=== PATIENT | female | born 1960 | race Two or more races ===

== ENCOUNTER 2017-07-16 18:34 | Emergency (ER) | payer OTHER ==
--- NOTE | 2017-07-16 18:41 | PDOC ---
Rapid Medical Evaluation Time Seen by Provider: 07/16/17 18:37 Medical Evaluation: Allergies Allergy/AdvReac Type Severity Reaction Status Date / Time Penicillins Allergy Verified 04/21/16 16:10 sulfamethoxazole Allergy Verified 04/21/16 16:10 [From Bactrim] trimethoprim [From Bactrim] Allergy Verified 04/21/16 16:10 07/16/17 18:37 I have performed a brief in-person evaluation of this patient. The patient presents with a chief complaint of: Pt from [facility] , sent in for L leg swelling, r/o DVT. No witnessed trauma. Pt ambulatory Pertinent physical exam findings:L leg swollen compared to right side, no erythema/warmth or tenderness I have ordered the following: cbc/chem/US The patient will proceed to the ED for further evaluation. 07/16/17 18:42
[2017-07-16 18:43] VITALS: BP 130/32; PULSE 90; TEMP 98.2; BMI 35.0
[2017-07-16 18:56] LABS: BASOPHIL 0.6 % (0-2.0); EOSINOPHIL 1.7 % (0-4.5); MCH 29.3 pg (25.7-33.7); MCHC 32.6 g/dl (32.0-36.0); MEAN CELL VOLUME 89.9 fl (80-96); MEAN PLT VOLUME 9.2 fl (7.5-11.1); NEUTROPHILS 57.2 % (42.8-82.8); PLATELET COUNT 222 K/MM3 (134-434); RDW 14.8 % (11.6-15.6); WHITE BLOOD COUNT 8.3 K/mm3 (4.0-10.0)
[2017-07-16 19:24] LABS: ALBUMIN 3.2 g/dl (3.4-5.0); ANION GAP 4 (8-16); BILIRUBIN,TOTAL 0.2 mg/dL (0.2-1.0); CALCIUM 8.7 mg/dL (8.5-10.1); CO2 29 mmol/L (21-32); CREATININE 0.6 mg/dL (0.55-1.02); GLUCOSE,RANDOM 102 mg/dL (74-106); SGOT/AST 13 U/L (15-37); SGPT/ALT 23 U/L (12-78); TOT PROT 6.9 g/dl (6.4-8.2)
[2017-07-16 19:25] LABS: ALK PHOS 117 U/L (45-117)
--- NOTE | 2017-07-16 20:10 | PDOC ---
History of Present Illness - General History Source: [facility] <Santiago Hollis - Last Filed: 07/16/17 20:16> - General History Source: Patient Exam Limitations: No Limitations - History of Present Illness Initial Comments: 07/16/17 20:46 Patient is a 57 year old female with a significant past medical history of Gallbladder disease, Hypothyroidism, Developmental Disability who presents to the ED with complaints of Lower left extremity swelling. Patient reports being sent from urgent care after coming in for complaint of left lower extremity swelling. Patient arrived into the ED with bandage on left lower extremity and reports she had it on while in urgent care facility as well. Bandage was removed from left lower extremity after arriving at ED. Patient states she currently does not having any pain from left lower extremity. Denies fever, chills. Denies nausea, coughing, vomiting. Lightheadedness, dizziness. Denies headache. Denies any other symptoms. Allergies: Penicillin, Sulfamethoxazole, Trimethoprim. [facility] history: [facility] No smoking. No alcohol. No illicit drugs. Surgical history:Cholecystectomy PMD: None <Odilon Stoddard - Last Filed: 07/16/17 20:47> - General Chief Complaint: Pain Stated Complaint: SKILLED NURSING LEG SWELLING Time Seen by Provider: 07/16/17 18:37 Past History - Past Medical History Anemia: No Asthma: No Cancer: No Cardiac Disorders: No CVA: No COPD: No CHF: No DVT: No Dementia: No Diabetes: No GI Disorders: Yes (GALLBLADDER DISEASE) Disorders: No HTN: Yes Hypercholesterolemia: No Liver Disease: No Seizures: No Thyroid Disease: Yes (hypothyroidism) Other medical history: MR,BEHAVIORAL D/O, - Surgical History Abdominal Surgery: No Appendectomy: No Cardiac Surgery: No Cholecystectomy: Yes Lung Surgery: No Neurologic Surgery: No Orthopedic Surgery: No - Suicide/Smoking/Psychosocial Hx Smoking Status: No Smoking History: Never smoked Have you smoked in the past 12 months: No Number of Cigarettes Smoked Daily: 0 Information on smoking cessation initiated: No Hx Alcohol Use: No Drug/Substance Use Hx: No Substance Use Type: None Hx Substance Use Treatment: No <Santiago Hollis - Last Filed: 07/16/17 20:16> <Odilon Stoddard - Last Filed: 07/16/17 20:47> - Past Medical History Allergies/Adverse Reactions: Allergies Allergy/AdvReac Type Severity Reaction Status Date / Time Penicillins Allergy Verified 07/16/17 18:40 sulfamethoxazole Allergy Verified 07/16/17 18:40 [From Bactrim] trimethoprim [From Bactrim] Allergy Verified 07/16/17 18:40 Home Medications: Ambulatory Orders Clonazepam 1 mg PO BID 11/11/13 Lisinopril [Prinivil] 10 mg PO DAILY 10/08/14 Multivitamins [Multivit ([facility] Formul[facility])] 1 tab PO DAILY 10/08/14 Ranitidine HCl [Zantac] 150 mg PO BID 10/08/14 Benztropine Mesylate [Cogentin] 0.5 mg PO DAILY 12/23/14 Carbamazepine [Tegretol -] 200 mg PO BID 12/23/14 Centrum Tablet 1 tab PO DAILY 12/23/14 Cholecalciferol (Vitamin D3) [Vitamin D-3] 2,000 units PO DAILY 12/23/14 Clonazepam [Klonopin -] 0.5 mg PO DAILY 12/23/14 Lurasidone HCl [Latuda] 60 mg PO DAILY 12/23/14 Sertraline HCl [Zoloft] 100 mg PO DAILY 12/23/14 Oxycodone HCl/Acetaminophen [Percocet 5-325 mg Tablet -] 1 tab PO Q6H PRN #20 tablet 12/24/14 Review of Systems - Review of Systems Able to Perform ROS?: Yes Comments:: 07/16/17 20:47 Adult Basic ROS CONSTITUTIONAL: Absent: fever, no chills, no fatigue EYES: Absent: visual changes ENT: Absent: ear pain, no sore throat CARDIOVASCULAR: Absent: chest pain, no palpitations RESPIRATORY: Absent: cough, no SOB GI: Absent: abdominal pain, no nausea, no vomiting, no constipation, no diarrhea GENITOURINARY: Absent: dysuria, no frequency, no hematuria MUSCULOSKELETAL: +left lower extremity swelling. Absent: back pain, no arthralgia, no myalgia SKIN: Absent: rash All Other Systems: Reviewed and Negative <Odilon Stoddard - Last Filed: 07/16/17 20:47> *Physical Exam - Vital Signs Last Vital Signs Temp Pulse Resp BP Pulse Ox 98.2 F 90 18 130/32 100 07/16/17 18:41 07/16/17 18:41 07/16/17 18:41 07/16/17 18:41 07/16/17 18:41 <Santiago Hollis - Last Filed: 07/16/17 20:16> - Vital Signs Last Vital Signs Temp Pulse Resp BP Pulse Ox 98.2 F 90 18 130/32 100 07/16/17 18:41 07/16/17 18:41 07/16/17 18:41 07/16/17 18:41 07/16/17 18:41 - Physical Exam Comments: 07/16/17 20:47 GENERAL: Well-appearing, well-nourished. No apparent distress. HEENT: Normocephalic, atraumatic. PERRL, EOM intact. CARDIOVASCULAR: Normal S1, S2. Regular rate and rhythm. PULMONARY: Clear to auscultation bilaterally. ABDOMEN: +Morbidly obese. Soft, non-distended, non-tender. EXTREMITIES: +Slight edema of left lower extremity, non pitting. No erythema. No open wounds to either lower extremities. Normal ROM in all four extremities. No gross deformities. SKIN: Warm, dry. No rash NEUROLOGICAL: No focal neurological deficits. <Odilon Stoddard - Last Filed: 07/16/17 20:47> ED Treatment Course - LABORATORY CBC & Chemistry Diagram: 07/16/17 18:50 07/16/17 18:50 - ADDITIONAL ORDERS Additional order review: Laboratory Results 07/16/17 18:50 Sodium 142 Potassium 4.3 Chloride 109 H Carbon Dioxide 29 Anion Gap 4 L BUN 26 H D Creatinine 0.6 Creat Clearance w eGFR > 60 Random Glucose 102 Calcium 8.7 Total Bilirubin 0.2 D AST 13 L ALT 23 Alkaline Phosphatase 117 Total Protein 6.9 Albumin 3.2 L 07/16/17 18:50 RBC 4.76 MCV 89.9 MCHC 32.6 RDW 14.8 MPV 9.2 Neutrophils % 57.2 Lymphocytes % 31.7 Monocytes % 8.8 Eosinophils % 1.7 Basophils % 0.6 <Santiago Hollis - Last Filed: 07/16/17 20:16> - LABORATORY CBC & Chemistry Diagram: 07/16/17 18:50 07/16/17 18:50 - ADDITIONAL ORDERS Additional order review: Laboratory Results 07/16/17 18:50 Sodium 142 Potassium 4.3 Chloride 109 H Carbon Dioxide 29 Anion Gap 4 L BUN 26 H D Creatinine 0.6 Creat Clearance w eGFR > 60 Random Glucose 102 Calcium 8.7 Total Bilirubin 0.2 D AST 13 L ALT 23 Alkaline Phosphatase 117 Total Protein 6.9 Albumin 3.2 L 07/16/17 18:50 RBC 4.76 MCV 89.9 MCHC 32.6 RDW 14.8 MPV 9.2 Neutrophils % 57.2 Lymphocytes % 31.7 Monocytes % 8.8 Eosinophils % 1.7 Basophils % 0.6 <Odilon Stoddard - Last Filed: 07/16/17 20:47> Medical Decision Making - Medical Decision Making 07/16/17 20:14 Dr. Hollis: The scribe's documentation has been prepared under my direction and personally reviewed by me in its entirery. I confirm that the note above accurately reflects all work, treatment, procedures, and medical decision making performed by me. Lab work and duplex negative. Pt afebrile.. Family and healthcare manager advised to follow up with pt pcp for further evaluation. <Santiago Hollis - Last Filed: 07/16/17 20:16> *DC/Admit/Observation/Transfer - Discharge Dispostion Admit: No <Santiago Hollis - Last Filed: 07/16/17 20:16> - Attestations Scribe Attestion: 07/16/17 20:47 Documentation prepared by Odilon Stoddard, acting as medical reception specialist for Santiago Hollis MD/DO. <Odilon Stoddard - Last Filed: 07/16/17 20:47> Diagnosis at time of Disposition: Soft tissue swelling - Discharge Dispostion Disposition: HOME Condition at time of disposition: Stable - Patient Instructions Printed Discharge Instructions: Soft Tissue Pain (Alternative Therapy) Additional Instructions: Have patient elevate legs and follow up with your primary care doctor for further evaluation.
== END 2017-07-16 20:50 | disposition home or self-care (01) ==
LOC: JER 18:34
DX: M79.89 Other specified soft tissue disorders (principal); E66.01 Morbid (severe) obesity due to excess calories; Z68.35 Body mass index [BMI] 35.0-35.9, adult; E03.9 Hypothyroidism, unspecified; F79 Unspecified intellectual disabilities; I10 Essential (primary) hypertension
CPT/HCPCS: 36415; 80053; 85025; 93971-TC; 99282-25

== ENCOUNTER 2017-11-23 13:44 | Observation (INO) | payer OTHER ==
--- NOTE | 2017-11-23 13:48 | PDOC ---
History of Present Illness <Payal Ledezma - Last Filed: 11/23/17 15:18> - General History Source: Sibling (sister), Retirement Records, Other (Home Health Aid ) Exam Limitations: Other (MR) - History of Present Illness Initial Comments: 11/23/17 14:56 The patient is a 57 year old female, from [facility], with a significant past medical history of MR, HTN, hypothyroid, and behavior disorder who presents to the ED, accompanied by aid and sister, for decreased PO intake and lethargy for several days. As per sister, the patient comes into the ED for evaluation of possible dehydration. Patient has a decreased PO intake and is not wanting to eat or drink. Aid states the patient is not acting like herself and is more lethargic than baseline. As per skilled nursing records, patient had a low grade fever of 100.4 F 3 days ago. Sister also states the patient has cracked lips and tongue, a dry cough for the past several days, and had one episode of vomiting white phlegm yesterday. Patient saw Dr. Camille Quiles and was prescribed Macrobid. Patient is unable to give history secondary to MR. <Dylan العلي - Last Filed: 11/23/17 15:23> - General Chief Complaint: Respiratory Stated Complaint: "RUNNY NOSE, CHEST CONGESTION" Time Seen by Provider: 11/23/17 13:47 Past History - Past Medical History Anemia: No Asthma: No Cancer: No Cardiac Disorders: No CVA: No COPD: No CHF: No DVT: No Dementia: No Diabetes: No GI Disorders: Yes (GALLBLADDER DISEASE) Disorders: No HTN: Yes Hypercholesterolemia: No Liver Disease: No Seizures: No Thyroid Disease: Yes (hypothyroidism) - Surgical History Abdominal Surgery: No Appendectomy: No Cardiac Surgery: No Cholecystectomy: Yes Lung Surgery: No Neurologic Surgery: No Orthopedic Surgery: No - Suicide/Smoking/Psychosocial Hx Smoking Status: No Smoking History: Never smoked Have you smoked in the past 12 months: No Number of Cigarettes Smoked Daily: 0 Hx Alcohol Use: No Drug/Substance Use Hx: No Substance Use Type: None Hx Substance Use Treatment: No <Payal Ledezma - Last Filed: 11/23/17 15:18> <Dylan العلي - Last Filed: 11/23/17 15:23> - Past Medical History Allergies/Adverse Reactions: Allergies Allergy/AdvReac Type Severity Reaction Status Date / Time Penicillins Allergy Verified 11/23/17 13:47 sulfamethoxazole Allergy Verified 11/23/17 13:47 [From Bactrim] trimethoprim [From Bactrim] Allergy Verified 11/23/17 13:47 Home Medications: Ambulatory Orders Ammonium Lactate Cream [Lac-Hydrin] 1 applic TP BID 11/23/17 Cholecalciferol (Vitamin D3) [Vitamin D3] 3,000 unit PO DAILY 11/23/17 Clonazepam 1 mg PO BID 11/23/17 Clozapine 50 mg PO HS 11/23/17 Fluoxetine HCl 20 mg PO DAILY 11/23/17 Lactulose [Cephulac -] 5 ml PO DAILY 11/23/17 Lisinopril 10 mg PO DAILY 11/23/17 Multivitamin [Multiple Vitamins] 1 each PO DAILY 11/23/17 Ranitidine [Zantac -] 150 mg PO BID 11/23/17 Review of Systems - Review of Systems Able to Perform ROS?: No Comments:: 11/23/17 14:56 Unable to obtain ROS secondary to patients MR. <Dylan العلي - Last Filed: 11/23/17 15:23> *Physical Exam - Vital Signs Last Vital Signs Temp Pulse Resp BP Pulse Ox 97.5 F L 113 H 20 130/51 88 L 11/23/17 13:45 11/23/17 13:45 11/23/17 13:45 11/23/17 13:45 11/23/17 13:45 - Physical Exam Comments: 11/23/17 14:56 GENERAL:+ Not talkative/not interactive, likes to keep eyes closed. Awake. HEAD: No signs of trauma EYES: PERRLA, EOMI, sclera anicteric, conjunctiva clear ENT: Auricles normal inspection, hearing grossly normal, nares patent, oropharynx clear without exudates. Moist mucosa NECK: Normal ROM, supple, no lymphadenopathy, JVD, or masses LUNGS: + Diminished at the bases. No wheezes, and no crackles HEART: + tachycardic, Regular rhythm, normal S1 and S2, no murmurs, rubs or gallops ABDOMEN: + Obese. Soft, nontender, normoactive bowel sounds. No guarding, no rebound. No masses EXTREMITIES: Normal range of motion, no edema. No clubbing or cyanosis. No cords, erythema, or tenderness NEUROLOGICAL: Normal speech SKIN: Warm, Dry, normal turgor, no rashes or lesions noted. <Dylan العلي - Last Filed: 11/23/17 15:23> Heart Score/ECG Review - ECG Intrepretation Comment:: 11/23/17 15:03 sinus tach at 109, nl axis, nl interval, no acute st/t wave findings <Payal Ledezma - Last Filed: 11/23/17 15:18> ED Treatment Course - LABORATORY CBC & Chemistry Diagram: 11/23/17 14:15 11/23/17 14:15 <Payal Ledezma - Last Filed: 11/23/17 15:18> - LABORATORY CBC & Chemistry Diagram: 11/23/17 14:15 11/23/17 14:15 - ADDITIONAL ORDERS Additional order review: Laboratory Results 11/23/17 11/23/17 14:30 14:15 Sodium 139 Potassium 4.2 Chloride 105 Carbon Dioxide 27 Anion Gap 7 L BUN 19 H Creatinine 0.7 Creat Clearance w eGFR > 60 Random Glucose 219 H Calcium 8.3 L Magnesium 2.1 Total Bilirubin 0.4 AST 17 ALT 20 Alkaline Phosphatase 102 H Creatine Kinase 49 Total Protein 6.4 Albumin 2.5 L Urine Color Janeen Urine Appearance Clear Urine pH 7.5 Ur Specific [place] 1.020 Urine Protein 1+ H Urine Glucose (UA) Negative Urine Ketones Negative Urine Blood Negative Urine Nitrite Negative Urine Bilirubin Negative Urine Urobilinogen 0.2 Ur Leukocyte Esterase Trace H Urine RBC 2-5 Urine WBC 3-6 Ur Epithelial Cells Moderate 11/23/17 14:15 RBC 4.22 MCV 89.9 MCHC 33.0 RDW 13.8 MPV 8.9 Neutrophils % 73.7 Lymphocytes % 18.7 Monocytes % 6.0 Eosinophils % 1.0 Basophils % 0.6 - Medications Given in the ED: ED Medications Discontinued Medications Generic Name Dose Route Start Last Admin Trade Name Freq PRN Reason Stop Dose Admin Sodium Chloride 1,000 ml 11/23/17 13:55 11/23/17 14:30 Normal Saline - IV 11/23/17 13:56 1,000 ml ONCE ONE Administration <Dylan العلي - Last Filed: 11/23/17 15:23> Medical Decision Making - Medical Decision Making 11/23/17 15:02 a/p: 57yo female with MR with fevers, cough, dark urine, decreased po intake, poss dehydration -concern that patient is more lethargic today. -on macrobid -pt with cough and diminished bs b/l -will check labs, cultures, ekg, cxr, ua, ucx -will give ivf hydraiton 11/23/17 15:02 pt returns from xray - PNA on xray will start abx cultures sent 11/23/17 15:03 discussed xray findings with the family call placed to Dr. Quiles 11/23/17 15:[address] Quiles who accepts pt to service will place on obs tele <Payal Ledezma - Last Filed: 11/23/17 15:18> - Medical Decision Making 11/23/17 15:[address] Camille Quiles at 15:13. <Dylan العلي - Last Filed: 11/23/17 15:23> *DC/Admit/Observation/Transfer - Discharge Dispostion Admit: Yes - Attestations Physician Attestion: 11/23/17 15:20 I, Dr. Payal Ledezma DO, attest that this document has been prepared under my direction and personally reviewed by me in its entirety. I further attest, that it accurately reflects all work, treatment, procedures and medical decision -making performed by me. <Payal Ledezma - Last Filed: 11/23/17 15:18> - Attestations Scribe Attestion: 11/23/17 14:56 Documentation prepared by Dylan العلي, acting as medical education specialist for Payal Ledezma DO <Dylan العلي - Last Filed: 11/23/17 15:23> Diagnosis at time of Disposition: Urinary tract infection, Pneumonia, Altered mental status - Discharge Dispostion Condition at time of disposition: Stable - Referrals Referrals: Camille Quiles MD [Primary Care Provider] - - Patient Instructions - Post Discharge Activity
[2017-11-23] MEDS ORDERED: SODIUM CHLORIDE 0.9% 1000 ML INFUS.BAG IV ONE ×2 (13:55→16:31)
[2017-11-23 14:35] LABS: BASO % 0.6 % (0-2.0); HEMOGLOBIN 12.6 GM/dl (10.7-15.3); LYMPH % 18.7 % (8-40); MCH 29.7 pg (25.7-33.7); MEAN CELL VOLUME 89.9 fl (80-96); MEAN PLT VOLUME 8.9 fl (7.5-11.1); NEUT % 73.7 % (42.8-82.8); PLATELET COUNT 330 K/MM3 (134-434); RBC 4.22 M/mm3 (3.60-5.2); RDW 13.8 % (11.6-15.6); WHITE BLOOD COUNT 12.2 K/mm3 (4.0-10.8)
[2017-11-23 14:45] LABS: ALBUMIN 2.5 g/dl (3.5-5.0); ALK PHOS 102 U/L (32-92); ANION GAP 7 (8-16); BILIRUBIN,TOTAL 0.4 mg/dl (0.2-1.0); BLOOD UREA NITROGEN 19 mg/dl (7-18); CALCIUM 8.3 mg/dl (8.4-10.2); CHLORIDE 105 mmol/L (98-107); CO2 27 mmol/L (22-28); CREATININE 0.7 mg/dl (0.6-1.3); GLUCOSE,RANDOM 219 mg/dl (74-106); MAGNESIUM 2.1 mg/dL (1.8-2.4); POTASSIUM 4.2 mmol/L (3.5-5.1); SGOT/AST 17 U/L (10-42); SGPT/ALT 20 U/L (10-40); SODIUM 139 mmol/L (136-145); TOT PROT 6.4 g/dl (6.4-8.3)
[2017-11-23 14:47] LABS: PH,URINE 7.5 (4.5-8); URINE APPEARANCE Clear; URINE BILIRUBIN Negative (NEGATIVE); URINE BLOOD Negative (NEGATIVE); URINE COLOR AMBER; URINE GLUCOSE (UA) Negative (NEGATIVE); URINE KETONE Negative (NEGATIVE); URINE LEUK ESTERASE TRACE (NEGATIVE); URINE NITRITE Negative (NEGATIVE); URINE PROTEIN 1+ (NEGATIVE); URINE UROBILINOGEN 0.2 (0.2-1.0)
[2017-11-23 14:53] LABS: EPI CELLS MODERATE /HPF
[2017-11-23] MEDS ORDERED: ACETAMINOPHEN 1000 MG/100 ML VIAL (NON FORMULARY) IVPB ONE (14:58)
[2017-11-23] MEDS ORDERED: ACETAMINOPHEN INJECTION 100 ML IVPB ONE (15:05)
[2017-11-23] MEDS ORDERED: ACETAMINOPHEN 325 MG TABLET (FP) PO PRN (17:07)
[2017-11-23 17:18] VITALS: BMI 39.6
--- NOTE | 2017-11-23 17:18 | HP ---
Admitting History and Physical - Primary Care Physician PCP: Camille Quiles - Admission Chief Complaint: not eating / feeling well History of Present Illness: The patient is a 57 year old female, from [facility], with a significant past medical history of MR, HTN, hypothyroid, and behavior disorder who presents to the ED, accompanied by aid and sister, for decreased PO intake and lethargy for several days. As per sister, the patient comes into the ED for evaluation of possible dehydration. Patient has a decreased PO intake and is not wanting to eat or drink. Aid states the patient is not acting like herself and is more lethargic than baseline. As per detention records, patient had a low grade fever of 100.4 F 3 days ago. Sister also states the patient has cracked lips and tongue, a dry cough for the past several days, and had one episode of vomiting white phlegm yesterday. Patient saw me in office few days ago and was prescribed Macrobid for uti. cxr - rll infiltrate pt given fluids/ abx pt seen/ examined sister/ aid at bedside Discussed with er physician History Source: Medical Record, Caregiver Limitations to Obtaining History: Clinical Condition - Smoking History Smoking history: Never smoked Have you smoked in the past 12 months: No Aproximately how many cigarettes per day: 0 - Alcohol/Substance Use Hx Alcohol Use: No Home Medications - Allergies Allergies/Adverse Reactions: Allergies Allergy/AdvReac Type Severity Reaction Status Date / Time Penicillins Allergy Verified 11/23/17 13:47 sulfamethoxazole Allergy Verified 11/23/17 13:47 [From Bactrim] trimethoprim [From Bactrim] Allergy Verified 11/23/17 13:47 - Home Medications Home Medications: Ambulatory Orders Ammonium Lactate Cream [Lac-Hydrin] 1 applic TP BID 11/23/17 Cholecalciferol (Vitamin D3) [Vitamin D3] 3,000 unit PO DAILY 11/23/17 Clonazepam 1 mg PO BID 11/23/17 Clozapine 50 mg PO HS 11/23/17 Fluoxetine HCl 20 mg PO DAILY 11/23/17 Lactulose [Cephulac -] 5 ml PO DAILY 11/23/17 Lisinopril 10 mg PO DAILY 11/23/17 Multivitamin [Multiple Vitamins] 1 each PO DAILY 11/23/17 Ranitidine [Zantac -] 150 mg PO BID 11/23/17 Review of Systems Unable to obtain ROS, reason: MR Physical Examination Vital Signs: Vital Signs Temperature 98.2 F 11/23/17 16:20 Pulse Rate 98 H 11/23/17 16:20 Respiratory Rate 22 11/23/17 16:20 Blood Pressure 130/80 11/23/17 16:20 O2 Sat by Pulse Oximetry (%) 94 L 11/23/17 14:00 Constitutional: Yes: No Distress, Other (LOOKS WEAK) Eyes: Yes: Conjunctiva Clear HENT: Yes: Other (mucosa dry) Cardiovascular: Yes: Regular Rate and Rhythm Respiratory: Yes: Other (fine crackles at right base) Gastrointestinal: Yes: Soft Edema: No Labs: CBC, BMP 11/23/17 14:15 11/23/17 14:15 Imaging - Results Chest X-ray: Report Reviewed Problem List - Problems (1) Pneumonia Code(s): J18.9 - PNEUMONIA, UNSPECIFIED ORGANISM (2) Urinary tract infection Code(s): N39.0 - URINARY TRACT INFECTION, SITE NOT SPECIFIED Assessment/Plan ABx fluids f/u labs urine for Legionella/Mycoplasma f/u cultures will follow Discussed with nursing staff/ pts sister. dvt prophylaxis.
[2017-11-23] MEDS: D5-1/2NS+20 MEQ KCL - 20 MEQ/1,000 ML INFUS.BAG IV SCH (18:00)
[2017-11-23] MEDS: clonazePAM 0.5 MG TABLET PO SCH (19:43)
[2017-11-23] MEDS: RANITIDINE HCL 150 MG TABLET (FP) PO SCH (21:14)
[2017-11-23] MEDS: cloZAPine 25 MG TABLET PO SCH (21:14)
[2017-11-23] MEDS: AMMONIUM LACTATE 12% LOTION 225 GM BOTTLE TP SCH (21:15)
[2017-11-23] MEDS: HEPARIN NA (PORCINE) 5,000 UNITS/ML 1ML VIAL SQ SCH (21:15)
[2017-11-23] MEDS ORDERED: clonazePAM 0.5 MG TABLET PO SCH (22:00)
[2017-11-24] MEDS: clonazePAM 0.5 MG TABLET PO SCH ×2 (06:34→16:34)
[2017-11-24 08:44] LABS: ALBUMIN 2.3 g/dl (3.5-5.0); ALK PHOS 99 U/L (32-92); ANION GAP 6 (8-16); BILIRUBIN,TOTAL 0.4 mg/dl (0.2-1.0); BLOOD UREA NITROGEN 14 mg/dl (7-18); CHLORIDE 109 mmol/L (98-107); CO2 25 mmol/L (22-28); GLUCOSE,RANDOM 123 mg/dl (74-106); POTASSIUM 4.3 mmol/L (3.5-5.1); SGOT/AST 16 U/L (10-42); SGPT/ALT 18 U/L (10-40); SODIUM 140 mmol/L (136-145); TOT PROT 6.2 g/dl (6.4-8.3)
[2017-11-24 08:53] LABS: CREATININE 0.6 mg/dl (0.6-1.3)
[2017-11-24] MEDS: LACTULOSE 20 GM/30 ML UDC (FOR ORAL USE ONLY) PO SCH (09:43)
[2017-11-24] MEDS: FLUoxetine HCL 20 MG CAPSULE (FP) PO SCH (09:43)
[2017-11-24] MEDS: LISINOPRIL 10 MG TABLET (FP) PO SCH (09:43)
[2017-11-24] MEDS: CHOLECALCIFEROL (VITAMIN D3) 1,000 UNIT TABLET (FP) PO SCH (09:43)
[2017-11-24] MEDS: HEPARIN NA (PORCINE) 5,000 UNITS/ML 1ML VIAL SQ SCH ×2 (09:44→21:48)
[2017-11-24] MEDS: RANITIDINE HCL 150 MG TABLET (FP) PO SCH ×2 (09:44→21:48)
[2017-11-24] MEDS: AMMONIUM LACTATE 12% LOTION 225 GM BOTTLE TP SCH ×2 (09:46→21:49)
[2017-11-24] MEDS: MULTIVITAMINS (DAILY MVI) TABLET (FP) PO SCH (10:00)
[2017-11-24 11:24] LABS: HEMATOCRIT 36.7 % (32.4-45.2); HEMOGLOBIN 12.4 GM/dl (10.7-15.3); MCH 30.2 pg (25.7-33.7); MCHC 33.7 g/dl (32.0-36.0); MEAN CELL VOLUME 89.6 fl (80-96); MEAN PLT VOLUME 8.4 fl (7.5-11.1); PLATELET COUNT 341 K/MM3 (134-434); RBC 4.09 M/mm3 (3.60-5.2); RDW 13.5 % (11.6-15.6); WHITE BLOOD COUNT 13.4 K/mm3 (4.0-10.8)
[2017-11-24 11:25] LABS: ADD RBC MORPHOLOGY YES
[2017-11-24 13:16] LABS: MACROCYTOSIS 1+; OVALOCYTE 1+; SMUDGE CELLS FEW; TEAR DROP CELLS 1+
[2017-11-24 13:17] LABS: PLATELET ESTIMATE SLT INCREASE
--- NOTE | 2017-11-24 15:43 | PN ---
Progress Note (short form) - Note Progress Note: pt seen/ examined looks much better eating better sister at bedside communicating - small talk afebrile Vital Signs Temp 98.3 F 11/24/17 09:55 Pulse 98 H 11/24/17 09:55 Resp 20 11/24/17 09:55 BP 106/54 11/24/17 09:55 Pulse Ox 100 11/24/17 09:00 Intake & Output 11/23/17 11/24/17 11/24/17 23:59 11:59 23:59 Intake Total 1310 1450 Output Total 400 300 Balance 910 1150 Weight 253 lb Intake: IV 1000 1200 D5-1/2NS+20 MEQ KCL - 20 1200 meq In 1,000 ml @ 100 mls /hr IV [facility] Rx#: [id number] normal saline 1000 IVPB 110 Oral 200 250 Output: Urine 400 300 Void 400 300 Other: Voiding Method Toilet Toilet # Unmeasured Voids Void 1 Bowel Movement Yes # Bowel Movements 1 Height 5 ft 7 in Body Mass Index (BMI) 39.6 Weight Measurement Method [facility] Active Medications Acetaminophen (Tylenol -) 650 mg PO Q4H PRN PRN Reason: FEVER Cholecalciferol (Vitamin D3 -) 3,000 unit PO DAILY [facility] Last Admin: 11/24/17 09:43 Dose: 3,000 unit Clonazepam (Klonopin -) 1 mg PO BID@0700,1700 [facility] Last Admin: 11/24/17 06:34 Dose: 1 mg Clozapine (Clozaril -) 50 mg PO HS [facility] Last Admin: 11/23/17 21:14 Dose: 50 mg Fluoxetine HCl (Prozac -) 20 mg PO DAILY [facility] Last Admin: 11/24/17 09:43 Dose: 20 mg Heparin Sodium (Porcine) (Heparin -) 5,000 unit SQ BID [facility] Last Admin: 11/24/17 09:44 Dose: 5,000 unit Potassium Chloride/Dextrose/Sod Cl (D5-1/2ns+20 Meq Kcl -) 20 meq in 1,000 mls @ 100 mls/hr IV [facility] Last Admin: 11/23/17 18:00 Dose: 100 mls/hr Levofloxacin (Levaquin 500 Mg Premixed Ivpb -) 500 mg in 100 mls @ 100 mls/hr IVPB DAILY [facility] Lactic Acid (Lac-Hydrin 12) 1 applic TP BID [facility] Last Admin: 11/24/17 09:46 Dose: 1 applic Lactulose (Cephulac (Oral Use)) 5 gm PO DAILY [facility] Last Admin: 11/24/17 09:43 Dose: 5 gm Lisinopril (Prinivil) 10 mg PO DAILY [facility] Last Admin: 11/24/17 09:43 Dose: 10 mg Multivitamins/Minerals/Vitamin C (Tab-A-Vit -) 1 tab PO DAILY [facility] Last Admin: 11/24/17 10:00 Dose: 1 tab Ranitidine HCl (Zantac -) 150 mg PO BID [facility] Last Admin: 11/24/17 09:44 Dose: 150 mg CBC, BMP 11/24/17 10:20 11/24/17 06:00 Microbiology 11/23/17 14:25 Blood Culture - Preliminary Blood - Peripheral Venous NO GROWTH OBTAINED AFTER 24 HOURS, INCUBATION TO CONTINUE FOR 4 DAYS. 11/23/17 14:15 Blood Culture - Preliminary Blood - Peripheral Venous NO GROWTH OBTAINED AFTER 24 HOURS, INCUBATION TO CONTINUE FOR 4 DAYS. 11/23/17 17:30 Legionella Antigen - Preliminary Urine - Urine Davalos Streptococcus pneumoniae Antigen (M - Final Physical Examination Constitutional: Yes: No Distress, Other (better) Eyes: Yes: Conjunctiva Clear HENT: Yes: Other (mucosa moist) Cardiovascular: Yes: Regular Rate and Rhythm Respiratory: Yes: Other (fine crackles at right base) Gastrointestinal: Yes: Soft/ non tender Edema: No Imaging - Results Chest X-ray: Report Reviewed Assessment/Plan Better ABx fluids-- continue today f/u labs urine for Legionella/Mycoplasma f/u cultures-- ve so far Discussed with nursing staff/ pts sister. dvt prophylaxis. will follow Problem List - Problems (1) Pneumonia Code(s): J18.9 - PNEUMONIA, UNSPECIFIED ORGANISM (2) Urinary tract infection Code(s): N39.0 - URINARY TRACT INFECTION, SITE NOT SPECIFIED
[2017-11-24] MEDS: D5-1/2NS+20 MEQ KCL - 20 MEQ/1,000 ML INFUS.BAG IV SCH (18:45)
[2017-11-24] MEDS ORDERED: PT OWN MED DRAWER 7, Y5N ONE (21:14)
[2017-11-24] MEDS: cloZAPine 25 MG TABLET PO SCH (21:48)
[2017-11-25 06:25] VITALS: BP 111/69; PULSE 112; TEMP 98.3
[2017-11-25] MEDS: clonazePAM 0.5 MG TABLET PO SCH (06:26)
--- NOTE | 2017-11-25 08:15 | DS ---
Physical Examination Vital Signs: Vital Signs Temperature 98.3 F 11/25/17 06:00 Pulse Rate 112 H 11/25/17 06:00 Respiratory Rate 20 11/25/17 06:00 Blood Pressure 111/69 11/25/17 06:00 O2 Sat by Pulse Oximetry (%) 91 L 11/25/17 06:00 Findings/Remarks: looks good afebrile eating well sister at bedside wants to take her home today Constitutional: Yes: No Distress, Calm Neck: Yes: Supple Cardiovascular: Yes: Regular Rate and Rhythm Respiratory: Yes: CTA Bilaterally. No: Stridor Gastrointestinal: Yes: Normal Bowel Sounds, Soft Edema: No Labs: CBC, BMP 11/24/17 06:00 Discharge Summary Reason For Visit: "RUNNY NOSE, CHEST CONGESTION" Current Active Problems Altered mental status (Acute) Pneumonia (Acute) Urinary tract infection (Acute) Hospital Course: admitted for pneumonia/ dehydration treated with fluids much better. will discharge on po abx meds reconcilled abx prescribed discussed with nursing staff/ sister f/u in office in one week. f/u cxr in 4 weeks - document clearing of pneumonia. Condition: Stable - Instructions Diet, Activity, Other Instructions: f/u in office - one week f/u cxr in 4 weeks Referrals: Camille Quiles MD [Primary Care Provider] - Disposition: HOME - Home Medications Comprehensive Discharge Medication List: Ambulatory Orders Ammonium Lactate Cream [Lac-Hydrin 12% Cream -] 1 applic TP BID 11/23/17 Cholecalciferol (Vitamin D3) [Vitamin D3] 3,000 unit PO DAILY 11/23/17 Clonazepam 1 mg PO BID 11/23/17 Clozapine 50 mg PO HS 11/23/17 Fluoxetine HCl 20 mg PO DAILY 11/23/17 Lactulose [Cephulac -] 5 ml PO DAILY 11/23/17 Lisinopril 10 mg PO DAILY 11/23/17 Multivitamin [Multiple Vitamins] 1 each PO DAILY 11/23/17 Ranitidine [Zantac -] 150 mg PO BID 11/23/17 Acetaminophen [Tylenol .Regular Strength -] 650 mg PO Q4H PRN tablet 11/25/17 levoFLOXacin [Levaquin -] 500 mg PO DAILY #7 tablet 11/25/17
[2017-11-25 08:42] LABS: BASO % 0.3 % (0-2.0); EOS % 0.9 % (0-4.5); HEMATOCRIT 36.4 % (32.4-45.2); HEMOGLOBIN 12.1 GM/dl (10.7-15.3); LYMPH % 18.3 % (8-40); MCH 30.1 pg (25.7-33.7); MCHC 33.3 g/dl (32.0-36.0); MEAN CELL VOLUME 90.5 fl (80-96); MEAN PLT VOLUME 8.4 fl (7.5-11.1); MONO % 7.7 % (3.8-10.2); NEUT % 72.8 % (42.8-82.8); PLATELET COUNT 288 K/MM3 (134-434); RBC 4.02 M/mm3 (3.60-5.2); RDW 13.6 % (11.6-15.6); WHITE BLOOD COUNT 10.9 K/mm3 (4.0-10.8)
[2017-11-25] MEDS: LACTULOSE 20 GM/30 ML UDC (FOR ORAL USE ONLY) PO SCH (09:22)
[2017-11-25] MEDS: LISINOPRIL 10 MG TABLET (FP) PO SCH (09:23)
[2017-11-25] MEDS: CHOLECALCIFEROL (VITAMIN D3) 1,000 UNIT TABLET (FP) PO SCH (09:23)
[2017-11-25] MEDS: MULTIVITAMINS (DAILY MVI) TABLET (FP) PO SCH (09:23)
[2017-11-25] MEDS: RANITIDINE HCL 150 MG TABLET (FP) PO SCH (09:23)
[2017-11-25] MEDS: FLUoxetine HCL 20 MG CAPSULE (FP) PO SCH (09:23)
[2017-11-25] MEDS: HEPARIN NA (PORCINE) 5,000 UNITS/ML 1ML VIAL SQ SCH (09:24)
--- NOTE | 2017-11-25 12:33 | EKG ---
Test Reason : Blood Pressure : / mmHG Vent. Rate : 109 BPM Atrial Rate : 109 BPM P-R Int : 156 ms QRS Dur : 086 ms QT Int : 336 ms P-R-T Axes : 074 021 040 degrees QTc Int : 452 ms SINUS TACHYCARDIA OTHERWISE NORMAL ECG WHEN COMPARED WITH ECG OF 23-NOV-2014 09:48, VENT. RATE HAS INCREASED BY 51 BPM QT HAS LENGTHENED Confirmed by KASHIF JIMENEZ, GABRIELA ([id number]) on 11/25/2017 12:33:20 PM Referred By: YULIET STATON Confirmed By:GABRIELA ROWLAND MD
== END 2017-11-25 10:00 | disposition home or self-care (01) ==
LOC: FER 13:44 → FM/S 15:57
PROVIDERS: ADMIT Internal Medicine; ATTEND Internal Medicine
PROC: 3E03329 Introduction of Other Anti-infective into Peripheral Vein, Percutaneous Approach (ICD-10-PCS; principal; 2017-11-23)
PROC: 3E0337Z Introduction of Electrolytic and Water Balance Substance into Peripheral Vein, Percutaneous Approach (ICD-10-PCS; 2017-11-23)
PROC: 3E013GC Introduction of Other Therapeutic Substance into Subcutaneous Tissue, Percutaneous Approach (ICD-10-PCS; 2017-11-23)
DX: J18.9 Pneumonia, unspecified organism (principal); N39.0 Urinary tract infection, site not specified; R41.82 Altered mental status, unspecified; I10 Essential (primary) hypertension; E03.9 Hypothyroidism, unspecified; E86.0 Dehydration; F79 Unspecified intellectual disabilities; Z88.0 Allergy status to penicillin; Z88.2 Allergy status to sulfonamides
CPT/HCPCS: 36415; 71045-TC-FY; 80053; 81003; 81015; 82550; 83605; 83735; 83880; 84484; 85025; 86738; 87040; 87086; 87899; 93005; 99285-25; G0378; J0131; J1644; J7030